=== PATIENT | female | born 1945 | race Caucasian/White ===

== ENCOUNTER → 2018-01-09 | Outpatient (CLI) | payer BC, MEDICARE ==
[2018-01-09 20:03] LABS: BASO % 0.3 % (0.0-1.0); EOS # 0.1 10^3/uL (0.0-0.50); EOS % 1.3 % (0.0-3.0); HEMOGLOBIN 13.1 g/dl (12.0-15.5); IMMATURE GRANULOCYTE % 0.1 % (0-3.0); LYMPH # 1.5 10^3/uL (1.5-4.5); LYMPH % 16.7 % (24.0-44.0); MEAN CORPUSCULAR HEMOGLOBIN 29.6 pg (27.0-33.0); MEAN CORPUSCULAR HGB CONC 32.8 g/dl (32.0-36.5); MEAN CORPUSCULAR VOLUME 90.5 fl (80.0-96.0); MONO # 1.1 10^3/uL (0.0-0.8); MONO % 12.2 % (0.0-5.0); NEUTROPHILS # 6.2 10^3/uL (1.8-7.7); NEUTROPHILS % 69.4 % (36.0-66.0); PLATELET COUNT, AUTOMATED 304 10^3/uL (150-450); RED BLOOD COUNT 4.42 10^6/uL (4.00-5.40); RED CELL DISTRIBUTION WIDTH 12.6 % (11.5-14.5); WHITE BLOOD COUNT 8.9 10^3/uL (4.0-10.0)
[2018-01-09 20:29] LABS: ALBUMIN 3.7 GM/DL (3.2-5.2); ALBUMIN/GLOBULIN RATIO 1.12 (1.00-1.93); ALKALINE PHOSPHATASE 45 U/L (45-117); ALT/SGPT 22 U/L (12-78); AMYLASE 66 U/L (25-115); ANION GAP 6 MEQ/L (8-16); AST/SGOT 16 U/L (7-37); BILIRUBIN,TOTAL 0.4 MG/DL (0.2-1.0); BLOOD UREA NITROGEN 14 MG/DL (7-18); CALCIUM LEVEL 9.3 MG/DL (8.8-10.2); CARBON DIOXIDE LEVEL 31 MEQ/L (21-32); CHLORIDE LEVEL 106 MEQ/L (98-107); CREATININE FOR GFR 0.82 MG/DL (0.55-1.30); GLOMERULAR FILTRATION RATE > 60.0 (>39); GLUCOSE, FASTING 92 MG/DL (70-100); SODIUM LEVEL 143 MEQ/L (136-145)
== END ==
LOC: M LAB 19:12
DX: R10.30 Lower abdominal pain, unspecified (principal)
CPT/HCPCS: 82150

== ENCOUNTER 2018-03-02 12:00 | Day surgery (SDC) | payer BC ==
[2018-03-02] MEDS ORDERED: PROPOFOL 500 MG/50 ML VIAL As Ordered (13:57)
[2018-03-02] MEDS ORDERED: NS 1,000 ML IV (14:00)
[2018-03-02] MEDS ORDERED: LIDOCAINE 2% INJ 100 MG/5 ML SDV (FOR ANES.) As Ordered (14:01)
[2018-03-02] MEDS ORDERED: PROPOFOL 200 MG/20 ML VIAL As Ordered (14:53)
[2018-03-02] MEDS ORDERED: fentaNYL 100 MCG/2 ML INJECTION (J3010) As Ordered (14:55)
== END 2018-03-02 16:00 | disposition home or self-care (01) ==
LOC: M OPP 12:00
DX: K64.0 First degree hemorrhoids (principal); K57.30 Diverticulosis of large intestine without perforation or abscess without bleeding; R93.3 Abnormal findings on diagnostic imaging of other parts of digestive tract; K22.8 Other specified diseases of esophagus; K44.9 Diaphragmatic hernia without obstruction or gangrene; R12 Heartburn; I10 Essential (primary) hypertension; E03.9 Hypothyroidism, unspecified; M12.9 Arthropathy, unspecified; M54.2 Cervicalgia; Z79.82 Long term (current) use of aspirin; Z79.891 Long term (current) use of opiate analgesic; Z79.899 Other long term (current) drug therapy; Q71.32 Congenital absence of left hand and finger; Z80.49 Family history of malignant neoplasm of other genital organs; Z82.49 Family history of ischemic heart disease and other diseases of the circulatory system
CPT/HCPCS: 45378

== ENCOUNTER → 2018-11-12 | Outpatient (CLI) | payer BC ==
[~2018-11-12] MED LIST: ALIG4CAP PO; AMOX875T2 PO; ASPI81TA26 PO; HYDR25TAB PO; LEVO50TA5 PO; MOEX15TA2 PO; OMEP40CA2 PO; RALO1TAB PO; TRAM50TA2 PO; VIAC8.5C PO; VITA200010 PO
--- NOTE | 2018-11-12 16:54 | REP ---
Left foot: Four views: History: Pain. Findings: Four views of the left foot demonstrate overall normal mineralization. There is mild sclerosis and narrowing of the second and third tarsometatarsal joints. The bones, joints and soft tissues are otherwise unremarkable. Impression: Mild osteoarthritic changes at the tarsometatarsal joints at digits two and three. Otherwise negative. Electronically Signed by Smooth Smith MD 11/13/2018 07:58 A
--- NOTE | 2018-11-12 16:54 | REP ---
Left ankle series: Four views: History: Pain. Findings: Four views of the left ankle demonstrate a small accessory ossicle adjacent to the medial malleolar tip. Ankle mortise is intact. No acute fracture is seen. Study is otherwise unremarkable. 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 No acute bony abnormality. Electronically Signed by Smooth Smith MD 11/13/2018 07:58 A
== END ==
LOC: M WUC 10:10
PROVIDERS: ATTEND Physician Assistant
DX: M25.572 Pain in left ankle and joints of left foot (principal); M19.072 Primary osteoarthritis, left ankle and foot